=== PATIENT | female | born 1980 | race Caucasian/White ===

== ENCOUNTER 2020-11-16 12:32 | Emergency (ER) | payer OTHER ==
[~2020-11-16] VITALS: Ht 170.2 cm; Wt 97.5 kg
[~2020-11-16 12:32] MED LIST: AMBIEN 5 MG TABL5 M1 PO; AMOXICILLIN 50500 MG PO; IBUPROFEN 600600 M1 PO; LAMICTAL 25 MG25 M1; LIDODERM 5%1 PATC1 TRANSDERM; NORCO 5-325 TA1 EACH PO; TYLENOL325 MG PO; ZPAK PO
[2020-11-16] MEDS ORDERED: NEURONTIN300 MG PO (13:00)
[2020-11-16] MEDS ORDERED: SEROQUEL400 MG PO (13:00)
[2020-11-16] MEDS ORDERED: LAMOTRIGINE250 MG PO (13:01)
[2020-11-16] MEDS ORDERED: FLEXERIL PO (13:02)
[2020-11-16] MEDS ORDERED: ULTRAM 50MG TAB50 MG PO (14:58)
[2020-11-16] MEDS ORDERED: MOBIC7.5 MG PO (14:58)
[2020-11-16] MEDS ORDERED: PREDNISONE 20 M20 MG PO (14:58)
[2020-11-16 15:15] VITALS: BP 127/69
== END 2020-11-16 15:29 | disposition home or self-care (01) ==
LOC: ER 12:32
DX: S16.1XXA Strain of muscle, fascia and tendon at neck level, initial encounter (principal); F17.210 Nicotine dependence, cigarettes, uncomplicated; F12.90 Cannabis use, unspecified, uncomplicated; Z79.899 Other long term (current) drug therapy; Z88.1 Allergy status to other antibiotic agents; Z88.8 Allergy status to other drugs, medicaments and biological substances; X58.XXXA Exposure to other specified factors, initial encounter; Y93.89 Activity, other specified; Y92.89 Other specified places as the place of occurrence of the external cause; Y99.8 Other external cause status